=== PATIENT | male | born 1970 | race Caucasian/White ===

== ENCOUNTER 2019-12-04 07:50 | Observation (INO) | payer OTHER ==
--- NOTE | 2019-12-04 08:10 | ERPHSYRPT ---
- History of Present Illness Time Seen by Provider: 12/04/19 08:00 Source: patient Exam Limitations: no limitations Patient Subjective Stated Complaint: pt here for increase in cough, he states he feels like there is liquid in hes lungs for the last 2 days, sputum yellow in coulor, denies fever, he states pain to chest from coughin so much Triage Nursing Assessment: pt alert,resp easy at rest, has diminshed bs,dry cough, no edema noted, abd soft. moves all ext well Physician History: Patient is a 49-year-old male presents to our ED with complaints of cough and shortness of breath that has been progressive over the last 2 days. Patient states shortness of breath worse when he lays flat. Patient feels "fluid" in his chest. Patient has left chest soreness. Patient attributes this to coughing. Patient is a smoker. He has not seen a primary care doctor in over 5 years. Patient works as a construction quality control manager. No fever. No nausea or vomiting. No diarrhea. No rash. Symptoms are progressive. Symptoms are moderate in intensity. Lying flat worsens shortness of breath. Sitting up improves his symptomology. Patient is hypertensive on the manager cardiac cath. Patient denies hx of medical problems. He voices no other complaints at this time. Timing/Duration: day(s) (2) Activities at Onset: none Severity of Dyspnea-Max: moderate Severity of Dyspnea-Current: mild Possible Cause: no prior episodes Modifying Factors: Improves With: other (Lying flat worsens symptomology.) Associated Symptoms: cough, chest pain/discomfort, edema, productive cough, No hemoptysis, No calf pain, No painful breathing Allergies/Adverse Reactions: lorazepam [From Ativan] Adverse Reaction (Verified 12/04/19 08:04) Hx Tetanus, Diphtheria Vaccination/Date Given: Yes Hx Influenza Vaccination/Date Given: No Hx Pneumococcal Vaccination/Date Given: No Immunizations Up to Date: Yes Travel Risk - International Travel Have you traveled outside of the country in past 3 weeks: No - Coronavirus Screening Are you exhibiting any of the following symptoms?: No Close contact with a COVID-19 positive Pt in past 14-21 Days: No - Review of Systems Constitutional: No Symptoms, No Fever, No Chills Eyes: No Symptoms Ears, Nose, & Throat: No Symptoms Respiratory: Cough, Dyspnea, Dyspnea on Exertion ([place]) Cardiac: No Chest Pain, No Edema, No Syncope Abdominal/Gastrointestinal: No Symptoms, No Abdominal Pain, No Nausea, No Vomiting, No Diarrhea Genitourinary Symptoms: No Dysuria Musculoskeletal: No Symptoms, No Back Pain, No Neck Pain Skin: No Symptoms, No Rash Neurological: No Symptoms, No Dizziness, No Focal Weakness, No Sensory Changes Psychological: No Symptoms Endocrine: No Symptoms Hematologic/Lymphatic: No Symptoms Immunological/Allergic: Pollen Allergy All Other Systems: Reviewed and Negative - Past Medical History Pertinent Past Medical History: No Neurological History: No Pertinent History ENT History: No Pertinent History Cardiac History: No Pertinent History Respiratory History: No Pertinent History Endocrine Medical History: No Pertinent History Musculoskeletal History: No Pertinent History GI Medical History: No Pertinent History History: No Pertinent History Psycho-Social History: Depression, Other Male Reproductive Disorders: No Pertinent History Other Medical History: CHRONIC BACK PAIN - Past Surgical History Past Surgical History: No - Social History Smoking Status: Current every day smoker Exposure to second hand smoke: Yes Drug Use: none Patient Lives Alone: No - Nursing Vital Signs Nursing Vital Signs: Initial Vital Signs Temperature 98.1 F 12/04/19 07:53 Pulse Rate 94 H 12/04/19 07:53 Respiratory Rate 22 12/04/19 07:53 Blood Pressure 225/128 12/04/19 07:53 O2 Sat by Pulse Oximetry 95 12/04/19 07:53 Pain Scale Pain Intensity 2 - Physical Exam General Appearance: no apparent distress, alert Eye Exam: PERRL/EOMI Ears, Nose, Throat Exam: hearing grossly normal Neck Exam: normal inspection, supple, full range of motion, No lymphadenopathy ( R), No lymphadenopathy (L), No subcutaneous emphysema Respiratory Exam: other (slightly course BS bilaterally.) Cardiovascular/Chest Exam: normal heart sounds, regular rate/rhythm Abdominal/Gastrointestinal Exam: soft, No tenderness, No distention, No mass Rectal Exam: deferred Extremity Exam: non-tender, normal range of motion, normal inspection, no calf tenderness, no pedal edema Peripheral Pulses Exam: dorsalis-pedis (R): 2+, dorsalis-pedis (L): 2+ Neurologic Exam: alert, oriented x 3, cooperative, venue attendant II-XII nml as tested, sensation nml, No motor deficits Skin Exam: normal color, warm, No dry Lymphatic Exam: No adenopathy SpO2 Interpretation: normal SpO2: 95 O2 Delivery: Room Air - Course Nursing assessment & vital signs reviewed: Yes EKG Interpreted by Me: RATE (80), Sinus Rhythm, Left Epping Deviation, NORMAL INTERVALS - Radiology Exams Chest X-ray Interpretation: Teleradiologist Report (1 acute hyperinflated chest with chronic features.) Ordered Tests: Active Orders 24 hr Category Date Time Status Climbing Guide STAT Care 12/04/19 08:07 Active EKG-ER Only STAT Care 12/04/19 08:06 Active IV Insertion STAT Care 12/04/19 08:06 Active Pulse Oximetry (ED) STAT Care 12/04/19 08:06 Active CHEST 1 VIEW (PORTABLE) Stat Exams 12/04/19 08:07 Completed CBC W DIFF Stat Lab 12/04/19 08:10 Completed CMP Stat Lab 12/04/19 08:10 Completed D-DIMER QUANTITATIVE Stat Lab 12/04/19 08:10 Completed NT PRO BNP Stat Lab 12/04/19 08:10 Completed TROPONIN Q3H Lab 12/04/19 08:10 Completed TROPONIN Q3H Lab 12/04/19 11:15 Ordered TROPONIN Q3H Lab 12/04/19 14:15 Ordered TROPONIN Q3H Lab 12/04/19 17:15 Ordered TROPONIN Q3H Lab 12/04/19 20:15 Ordered Transfer Order Routine Transfer 12/04/19 Ordered Medication Summary Generic Name Dose Route Start Last Admin Trade Name Freq PRN Reason Stop Dose Admin Nitroglycerin/Dextrose 250 mls @ 1.5 mls/hr 12/04/19 09:09 Ntg 0.2mg/Ml In D5w Glass IV 01/03/20 09:08 .Q24H PRN CHEST PAIN Protocol 5 MCG/MIN Lab/Rad Data: Laboratory Result Diagrams 12/04/19 08:10 12/04/19 08:10 Laboratory Results 12/04/19 12/04/19 12/04/19 Range/Units 08:10 08:10 08:10 WBC (4.0-10.5) K/mm3 RBC (4.1-5.6) M/mm3 Hgb (12.5-18.0) gm/dl Hct (42-50) % MCV (78-100) fl MCH (26-32) pg MCHC (32-36) g/dl RDW (11.5-14.0) % Plt Count (150-450) K/mm3 MPV (7.5-11.0) fl Gran % (36.0-66.0) % Eos # (Auto) (0-0.5) Absolute Lymphs (auto) (1.0-4.6) Absolute Monos (auto) (0.0-1.3) Lymphocytes % (24.0-44.0) % Monocytes % (0.0-12.0) % Eosinophils % (0.00-5.0) % Basophils % (0.0-0.4) % Absolute Granulocytes (1.4-6.9) Basophils # (0-0.4) D-Dimer < 215 L (215-500) ng/mL Sodium 140 (137-145) mmol/L Potassium 4.7 (3.5-5.1) mmol/L Chloride 104 (98-107) mmol/L Carbon Dioxide 29 (22-30) mmol/L Anion Gap 11.8 (5-15) MEQ/L BUN 18 (9-20) mg/dL Creatinine 0.77 (0.66-1.25) mg/dL Estimated GFR > 60.0 ML/MIN Glucose 125 H (74-106) mg/dL Calcium 10.2 (8.4-10.2) mg/dL Total Bilirubin 0.50 (0.2-1.3) mg/dL AST 33 (17-59) U/L ALT 24 (0-50) U/L Alkaline Phosphatase 86 (38-126) U/L Troponin I 0.035 H (0.000-0.034) ng/mL NT-Pro-B Natriuret Pep 71.5 (0-900) pg/mL Serum Total Protein 8.4 H (6.3-8.2) g/dL Albumin 4.8 (3.5-5.0) g/dL 12/04/19 Range/Units 08:10 WBC 6.4 (4.0-10.5) K/mm3 RBC 5.66 H (4.1-5.6) M/mm3 Hgb 17.1 (12.5-18.0) gm/dl Hct 50.5 H (42-50) % MCV 89.2 (78-100) fl MCH 30.2 (26-32) pg MCHC 33.9 (32-36) g/dl RDW 14.0 (11.5-14.0) % Plt Count 268 (150-450) K/mm3 MPV 9.3 (7.5-11.0) fl Gran % 49.3 (36.0-66.0) % Eos # (Auto) 0.38 (0-0.5) Absolute Lymphs (auto) 2.00 (1.0-4.6) Absolute Monos (auto) 0.79 (0.0-1.3) Lymphocytes % 31.4 (24.0-44.0) % Monocytes % 12.4 H (0.0-12.0) % Eosinophils % 6.0 H (0.00-5.0) % Basophils % 0.9 (0.0-0.4) % Absolute Granulocytes 3.13 (1.4-6.9) Basophils # 0.06 (0-0.4) D-Dimer (215-500) ng/mL Sodium (137-145) mmol/L Potassium (3.5-5.1) mmol/L Chloride (98-107) mmol/L Carbon Dioxide (22-30) mmol/L Anion Gap (5-15) MEQ/L BUN (9-20) mg/dL Creatinine (0.66-1.25) mg/dL Estimated GFR ML/MIN Glucose (74-106) mg/dL Calcium (8.4-10.2) mg/dL Total Bilirubin (0.2-1.3) mg/dL AST (17-59) U/L ALT (0-50) U/L Alkaline Phosphatase (38-126) U/L Troponin I (0.000-0.034) ng/mL NT-Pro-B Natriuret Pep (0-900) pg/mL Serum Total Protein (6.3-8.2) g/dL Albumin (3.5-5.0) g/dL - Progress Progress: improved Air Movement: fair Progress Note: 12/04/19 09:40 Patient reassessed. He has no active chest pain at this time. Patient is experiencing hypertensive urgency. Elevated troponin likely due to acute hypertension. Possible acute coronary syndrome. Patient is a smoker and has not seen a primary care doctor some years. We will initiate nitroglycerin drip to address blood pressure and elevated troponin. Case discussed with Hay who accepts admission to observation. We will perform rapid COVID testing due to cough. Plan of care discussed with patient. He agrees to admission to [facility] for further evaluation and treatment. Case discussed with Dr. Rodriguez who accepts admission to observation. Blood Culture(s) Obtained: No Antibiotics given: No Discussed with : Marli Will see patient in: hospital (observation) Counseled pt/family regarding: lab results, diagnosis, need for follow-up, rad results, smoking cessation - Departure Departure Disposition: Observation Clinical Impression: Hypertensive urgency, Elevated troponin, Shortness of breath, Smoker Condition: Stable Critical Care Time: No Referrals: ANDREE JAKCSON [Primary Care Provider] -
[2019-12-04 08:16] LABS: Absolute Neutrophil Ct (ANC) 3.13 (1.4-6.9); BASOPHIL % 0.9 % (0.0-0.4); Basophil (Absolute #) 0.06 (0-0.4); Eosinophil (Absolute #) 0.38 (0-0.5); Hematocrit 50.5 % (42-50); Hemoglobin 17.1 gm/dl (12.5-18.0); Lymphocytes % 31.4 % (24.0-44.0); Mean Cell Volume 89.2 fl (78-100); Mean Corpuscular Hemoglobin 30.2 pg (26-32); Mean Corpuscular Hgb Concent. 33.9 g/dl (32-36); Mean Platelet Volume 9.3 fl (7.5-11.0); Monocyte (Absolute #) 0.79 (0.0-1.3); Monocytes % 12.4 % (0.0-12.0); Neutrophil % 49.3 % (36.0-66.0); Platelet Count 268 K/mm3 (150-450); Red Blood Count 5.66 M/mm3 (4.1-5.6); White Blood Count 6.4 K/mm3 (4.0-10.5)
--- NOTE | 2019-12-04 08:33 | XRAY ---
Indication: Productive cough 2 days. Comparison: None Portable chest hyperinflated and clear with incidental tiny left lung calcified granulomas. Heart is not enlarged with tortuous descending aorta. Bony thorax intact with mild degenerative changes and old bilateral rib fractures. Impression: Nonacute hyperinflated chest with chronic features.
[2019-12-04 08:39] LABS: ALBUMIN 4.8 g/dL (3.5-5.0); ALKALINE PHOSPHATASE 86 U/L (38-126); ANION GAP 11.8 MEQ/L (5-15); BLOOD UREA NITROGEN 18 mg/dL (9-20); CHLORIDE 104 mmol/L (98-107); Calcium 10.2 mg/dL (8.4-10.2); Carbon Dioxide 29 mmol/L (22-30); Creatinine 1 0.77 mg/dL (0.66-1.25); Glucose 125 mg/dL (74-106); NT PRO BNP 71.5 pg/mL (0-900); Potassium 4.7 mmol/L (3.5-5.1); SGOT/AST 33 U/L (17-59); SGPT/ALT 24 U/L (0-50); SODIUM 140 mmol/L (137-145); Total Protein 8.4 g/dL (6.3-8.2)
[2019-12-04] MEDS ORDERED: Ntg 0.2MG/Ml in D5W GLASS*** 250 ML IV PRN (09:09)
[2019-12-04] MEDS ORDERED: Sodium Chloride 0.9% 1000 ML 1,000 ML ONE (11:22)
[2019-12-04] MEDS ORDERED: Toprol-Xl 25MG Tablets PO SCH (14:00)
[2019-12-04] MEDS ORDERED: Toprol-Xl 25MG Tablets ONE (14:13)
[2019-12-04] MEDS ORDERED: TYLENOL EXTRA STRENGTH 500 MG ONE (14:17)
[2019-12-04] MEDS: TYLENOL EXTRA STRENGTH 500 MG PO PRN ×2 (14:20→21:50)
[2019-12-04] MEDS ORDERED: MAALOX ES 30 ML UNIT DOSE PO PRN (14:30)
[2019-12-04] MEDS ORDERED: MILK OF MAGNESIA 30 ML PO PRN (14:30)
[2019-12-04] MEDS ORDERED: Zofran 4 MG/2 ML VIAL IV PRN (14:30)
[2019-12-04] MEDS ORDERED: Senokot-S Tablet PO PRN (14:30)
[2019-12-04] MEDS ORDERED: TYLENOL 325 MG PO PRN ×2 (14:30)
[2019-12-04] MEDS: Sodium Chloride 0.9% 1000 ML 1,000 ML IV SCH (14:52)
[2019-12-04] MEDS ORDERED: Toprol-Xl 25MG Tablets PO ONE (15:54)
[2019-12-04] MEDS ORDERED: NORVASC 5 MG PO ONE (16:20)
[2019-12-04] MEDS ORDERED: Oxycontin 10 MG ER PO ONE (17:20)
[2019-12-04] MEDS: Catapres 0.1 MG PO SCH ×2 (17:23→21:48)
[2019-12-04] MEDS: Nicoderm CQ 21 MG TOP SCH (18:13)
[2019-12-04] MEDS ORDERED: Oxycontin 10 MG ER PO PRN (20:28)
--- NOTE | 2019-12-04 20:37 | PCM.HP ---
History of Present Illness - Chief Complaint Chief Complaint: hypertensive urgency History of Present Illness: is a 49 year old male pt with no local MD (last saw PCP, Dr. Link, 5 years ago) and hx HTN who was admitted through ER with ACS vs Hypertensive urgency. He had been feeling like his lungs were "filled with fluid" x 2 days and increased cough, worse with lying down. In ER his inital BP was 225/128. EKG without acute change in ER. His first troponin was mildly elevated, but the next 3 have been normal. Pt was admitted on nitro drip, currently at 40mcg/min. He is complaining of headache ever since (better with oxycodone). His bp has been decreasing intermittently; currently around 180 systolic. He is feeling better than on admission; no longer feels like lungs are full of fluid. - Review of Systems Constitutional: Chills Ears, Nose, & Throat: Other (chemical taste on inspiration yesterday) Respiratory: Cough, Orthopnea, Short Of Breath Genitourinary Symptoms: Hematuria (2 wks ago, thought he passed a kidney stone) Neurological: Dizziness (at hospital) Psychological: No Suicidal Ideations All Other Systems: Reviewed and Negative Medications & Allergies Home Medications: Home Medication List No Reportable Medications [No Reported Medications] 12/04/19 [History Confirmed 12/04/19] Allergies/Adverse Reactions: Allergies Allergy/AdvReac Type Severity Reaction Status Date / Time lorazepam [From Ativan] AdvReac Verified 12/04/19 08:04 - Past Medical History Past Medical History: Yes Neurological History: No Pertinent History ENT History: No Pertinent History Cardiac History: Hypertension Respiratory History: No Pertinent History Endocrine Medical History: No Pertinent History Musculoskelatal History: No Pertinent History GI Medical History: No Pertinent History History: No Pertinent History Pyscho-Social History: No Pertinent History Male Reproductive Disorders: No Pertinent History Comment: CHRONIC BACK PAIN - Past Surgical History Past Surgical History: No - Social History Smoking Status: Current every day smoker Exposure to second hand smoke: Yes Alcohol: Occasionally Drug Use: none - Physical Exam Vital Signs: Vital Signs - 24 hr Temp Pulse Resp BP BP Pulse Ox 12/04/19 20:00 68 18 159/103 97 12/04/19 19:56 94 L 12/04/19 19:00 98.1 F 64 18 227/127 227/127 97 06/16/20 18:00 71 164/102 164/102 97 12/04/19 17:00 65 18 165/98 165/98 96 12/04/19 16:00 97.9 F 71 21 183/89 182/98 95 12/04/19 15:06 73 18 149/85 12/04/19 15:00 81 18 149/85 145/91 96 12/04/19 14:42 98.8 F 81 18 187/124 96 12/04/19 14:27 98.1 F 80 25 H 187/124 98 12/04/19 14:00 72 18 158/101 94 L 12/04/19 13:15 182/97 12/04/19 12:40 161/101 12/04/19 11:45 81 18 187/124 96 12/04/19 11:25 77 18 149/98 94 L 12/04/19 11:00 98.1 F 80 25 H 187/124 98 12/04/19 10:15 59 L 18 177/116 96 12/04/19 10:00 98.1 F 80 25 H 187/124 98 12/04/19 09:42 95 12/04/19 09:14 71 18 186/107 94 L 12/04/19 08:09 96 12/04/19 07:53 98.1 F 94 H 20 225/128 95 General Appearance: no apparent distress, alert Neurologic Exam: oriented x 3, cooperative Eye Exam: eyes nml inspection Ears, Nose, Throat Exam: moist mucous membranes Neck Exam: normal inspection, non-tender, No lymphadenopathy Respiratory Exam: normal breath sounds, lungs clear, No crackles/rales, No rhonchi, No wheezing Cardiovascular Exam: regular rate/rhythm, normal heart sounds, No murmur Gastrointestinal/Abdomen Exam: soft, normal bowel sounds, No tenderness, No distention, No mass, No guarding, No rebound Back Exam: normal inspection, No rash Extremity Exam: normal inspection, No swelling, No tenderness Skin Exam: normal color, warm, dry, No rash Results - Labs Lab/Micro Results: Lab Results-Last 24 Hours 12/04/19 12/04/19 12/04/19 Range/Units 08:10 08:10 08:10 WBC 6.4 (4.0-10.5) K/mm3 RBC 5.66 H (4.1-5.6) M/mm3 Hgb 17.1 (12.5-18.0) gm/dl Hct 50.5 H (42-50) % MCV 89.2 (78-100) fl MCH 30.2 (26-32) pg MCHC 33.9 (32-36) g/dl RDW 14.0 (11.5-14.0) % Plt Count 268 (150-450) K/mm3 MPV 9.3 (7.5-11.0) fl Gran % 49.3 (36.0-66.0) % Eos # (Auto) 0.38 (0-0.5) Absolute Lymphs (auto) 2.00 (1.0-4.6) Absolute Monos (auto) 0.79 (0.0-1.3) Lymphocytes % 31.4 (24.0-44.0) % Monocytes % 12.4 H (0.0-12.0) % Eosinophils % 6.0 H (0.00-5.0) % Basophils % 0.9 (0.0-0.4) % Absolute Granulocytes 3.13 (1.4-6.9) Basophils # 0.06 (0-0.4) D-Dimer < 215 L (215-500) ng/mL Sodium 140 (137-145) mmol/L Potassium 4.7 (3.5-5.1) mmol/L Chloride 104 (98-107) mmol/L Carbon Dioxide 29 (22-30) mmol/L Anion Gap 11.8 (5-15) MEQ/L BUN 18 (9-20) mg/dL Creatinine 0.77 (0.66-1.25) mg/dL Estimated GFR > 60.0 ML/MIN Glucose 125 H (74-106) mg/dL Calcium 10.2 (8.4-10.2) mg/dL Total Bilirubin 0.50 (0.2-1.3) mg/dL AST 33 (17-59) U/L ALT 24 (0-50) U/L Alkaline Phosphatase 86 (38-126) U/L Troponin I (0.000-0.034) ng/mL NT-Pro-B Natriuret Pep 71.5 (0-900) pg/mL Serum Total Protein 8.4 H (6.3-8.2) g/dL Albumin 4.8 (3.5-5.0) g/dL SARS-CoV-2 (PCR) (NEGATIVE) 12/04/19 12/04/19 12/04/19 Range/Units 08:10 09:35 11:25 WBC (4.0-10.5) K/mm3 RBC (4.1-5.6) M/mm3 Hgb (12.5-18.0) gm/dl Hct (42-50) % MCV (78-100) fl MCH (26-32) pg MCHC (32-36) g/dl RDW (11.5-14.0) % Plt Count (150-450) K/mm3 MPV (7.5-11.0) fl Gran % (36.0-66.0) % Eos # (Auto) (0-0.5) Absolute Lymphs (auto) (1.0-4.6) Absolute Monos (auto) (0.0-1.3) Lymphocytes % (24.0-44.0) % Monocytes % (0.0-12.0) % Eosinophils % (0.00-5.0) % Basophils % (0.0-0.4) % Absolute Granulocytes (1.4-6.9) Basophils # (0-0.4) D-Dimer (215-500) ng/mL Sodium (137-145) mmol/L Potassium (3.5-5.1) mmol/L Chloride (98-107) mmol/L Carbon Dioxide (22-30) mmol/L Anion Gap (5-15) MEQ/L BUN (9-20) mg/dL Creatinine (0.66-1.25) mg/dL Estimated GFR ML/MIN Glucose (74-106) mg/dL Calcium (8.4-10.2) mg/dL Total Bilirubin (0.2-1.3) mg/dL AST (17-59) U/L ALT (0-50) U/L Alkaline Phosphatase (38-126) U/L Troponin I 0.035 H 0.026 (0.000-0.034) ng/mL NT-Pro-B Natriuret Pep (0-900) pg/mL Serum Total Protein (6.3-8.2) g/dL Albumin (3.5-5.0) g/dL SARS-CoV-2 (PCR) NEGATIVE (NEGATIVE) 12/04/19 12/04/19 Range/Units 17:25 Unknown WBC (4.0-10.5) K/mm3 RBC (4.1-5.6) M/mm3 Hgb (12.5-18.0) gm/dl Hct (42-50) % MCV (78-100) fl MCH (26-32) pg MCHC (32-36) g/dl RDW (11.5-14.0) % Plt Count (150-450) K/mm3 MPV (7.5-11.0) fl Gran % (36.0-66.0) % Eos # (Auto) (0-0.5) Absolute Lymphs (auto) (1.0-4.6) Absolute Monos (auto) (0.0-1.3) Lymphocytes % (24.0-44.0) % Monocytes % (0.0-12.0) % Eosinophils % (0.00-5.0) % Basophils % (0.0-0.4) % Absolute Granulocytes (1.4-6.9) Basophils # (0-0.4) D-Dimer (215-500) ng/mL Sodium (137-145) mmol/L Potassium (3.5-5.1) mmol/L Chloride (98-107) mmol/L Carbon Dioxide (22-30) mmol/L Anion Gap (5-15) MEQ/L BUN (9-20) mg/dL Creatinine (0.66-1.25) mg/dL Estimated GFR ML/MIN Glucose (74-106) mg/dL Calcium (8.4-10.2) mg/dL Total Bilirubin (0.2-1.3) mg/dL AST (17-59) U/L ALT (0-50) U/L Alkaline Phosphatase (38-126) U/L Troponin I 0.023 0.025 (0.000-0.034) ng/mL NT-Pro-B Natriuret Pep (0-900) pg/mL Serum Total Protein (6.3-8.2) g/dL Albumin (3.5-5.0) g/dL SARS-CoV-2 (PCR) (NEGATIVE) - Radiology Impressions Radiology Exams & Impressions: Radiology Procedures Category Date Time Status CHEST 1 VIEW (PORTABLE) Stat Exams 12/04/19 08:07 Completed - Other Procedures and Tests Respiratory Therapy 12/05/19 05:00 EKG DAILY Assessment/Plan (1) Hypertensive urgency Current Visit: Yes Status: Acute Assessment & Plan: Slowly resolving; have also given pt toprol 50mg po, amlodipine 10mg po, and catapres 0.1mg po. Start weaning nitro drip as tolerated. Code(s): I16.0 - HYPERTENSIVE URGENCY (2) Elevated troponin Current Visit: Yes Status: Resolved Code(s): R79.89 - OTHER SPECIFIED ABNORMAL FINDINGS OF BLOOD CHEMISTRY (3) Shortness of breath Current Visit: Yes Status: Resolved Code(s): R06.02 - SHORTNESS OF BREATH (4) Smoker Current Visit: Yes Status: Chronic Assessment & Plan: has nicoderm patch in place. Code(s): F17.200 - NICOTINE DEPENDENCE, UNSPECIFIED, UNCOMPLICATED
[2019-12-05 05:56] LABS: Hematocrit 46.5 % (42-50); Hemoglobin 15.4 gm/dl (12.5-18.0); Mean Cell Volume 91.2 fl (78-100); Mean Corpuscular Hemoglobin 30.2 pg (26-32); Mean Corpuscular Hgb Concent. 33.1 g/dl (32-36); Platelet Count 242 K/mm3 (150-450); Red Cell Distribution Width 14.2 % (11.5-14.0); White Blood Count 7.4 K/mm3 (4.0-10.5)
[2019-12-05 06:15] LABS: ANION GAP 7.7 MEQ/L (5-15); BLOOD UREA NITROGEN 19 mg/dL (9-20); CHLORIDE 104 mmol/L (98-107); Calcium 9.3 mg/dL (8.4-10.2); Carbon Dioxide 29 mmol/L (22-30); Creatinine 1 0.84 mg/dL (0.66-1.25); Glucose 105 mg/dL (74-106); Potassium 4.4 mmol/L (3.5-5.1); SODIUM 136 mmol/L (137-145)
[2019-12-05 06:26] LABS: TROPONIN 0.033 ng/mL (0.000-0.034)
[2019-12-05 06:27] LABS: Amphetamine,Urine NEGATIVE (NEGATIVE); Barbiturate,Urine NEGATIVE (NEGATIVE); Benzodiazepine,Urine NEGATIVE (NEGATIVE); Cocaine,Urine NEGATIVE (NEGATIVE); Methadone,Urine NEGATIVE (NEGATIVE); Opiate,Urine NEGATIVE (NEGATIVE); PCP,Urine NEGATIVE (NEGATIVE); THC,Urine NEGATIVE (NEGATIVE)
[2019-12-05] MEDS: TYLENOL EXTRA STRENGTH 500 MG PO PRN ×2 (07:40→13:40)
[2019-12-05] MEDS: Toprol Xl 50 MG PO SCH (08:58)
[2019-12-05] MEDS: Catapres 0.1 MG PO SCH ×2 (08:59→20:21)
[2019-12-05] MEDS: NORVASC 5 MG PO SCH (08:59)
[2019-12-05] MEDS: Protonix 40MG Tablet PO SCH (09:00)
[2019-12-05] MEDS: Nicoderm CQ 21 MG TOP SCH (14:02)
--- NOTE | 2019-12-05 14:22 | PCM.NOTE ---
Date and Time: 12/05/199 Subjective Assessment: Pt's nitro drip was turned off last night for a time, then resumed this morning (also, headache resumed). I saw pt this morning, but RN let me know that the drip is off this afternoon with BP currently in the 120s systolic (pt had all his po BP meds this morning). He has no specific complaints today. - Review of Systems Constitutional: No Fever Abdominal/Gastrointestinal: No Vomiting Objective Exam General Appearance: no apparent distress, alert Neurologic Exam: oriented x 3, cooperative Skin Exam: normal color, warm, dry, No rash Respiratory Exam: normal breath sounds, wheezing (faint wheeze scattered), No crackles/rales, No rhonchi Cardiovascular Exam: regular rate/rhythm, normal heart sounds, No murmur Gastrointestinal/Abdomen Exam: soft, normal bowel sounds, No tenderness, No distention, No mass, No guarding, No rebound Extremity Exam: normal inspection, No pedal edema, No swelling Back Exam: normal inspection, No rash OBJECTIVE DATA Vital Signs: Vital Signs - 24 hr Temp Pulse Resp BP BP Pulse Ox 12/05/19 14:00 64 135/82 12/05/19 13:00 54 L 126/87 12/05/19 12:00 98.4 F 62 15 140/86 97 12/05/19 11:30 60 132/83 132/83 12/05/19 11:00 57 L 138/88 138/88 12/05/19 10:30 53 L 14 115/73 115/73 12/05/19 10:00 59 L 16 120/81 120/81 97 12/05/19 09:30 64 16 152/91 152/91 12/05/19 09:00 62 18 123/73 123/73 12/05/19 08:06 63 16 155/92 93 L 12/05/19 08:00 60 16 155/92 155/92 95 12/05/19 07:42 65 16 141/91 95 12/05/19 07:30 59 L 142/89 12/05/19 06:51 146/92 12/05/19 06:48 66 16 134/95 12/05/19 06:40 59 L 16 134/95 12/05/19 06:37 134/95 12/05/19 06:07 148/98 12/05/19 05:47 58 L 14 145/93 12/05/19 05:38 63 16 145/93 96 12/05/19 05:07 138/111 12/05/19 04:59 64 14 175/107 12/05/19 04:48 97.6 F 166/105 12/05/19 04:35 59 L 16 166/105 12/05/19 03:45 55 L 14 149/99 12/05/19 03:34 60 16 135/86 94 L 12/05/19 03:00 57 L 16 140/86 12/05/19 02:33 57 L 16 147/89 94 L 12/05/19 02:00 60 16 134/74 12/05/19 01:40 55 L 18 136/70 97 12/05/19 01:00 56 L 16 123/83 12/05/19 00:42 57 L 18 158/89 12/05/19 00:36 59 L 16 131/82 99 12/04/19 23:51 61 16 145/79 12/04/19 23:42 59 L 12/04/19 23:40 59 L 18 142/76 91 L 12/04/19 23:16 60 18 138/62 12/04/19 23:00 66 20 131/65 92 L 12/04/19 22:58 66 20 131/65 12/04/19 21:54 79 20 162/100 12/04/19 21:53 79 20 162/100 12/04/19 20:59 70 18 193/120 12/04/19 20:57 63 20 193/120 97 12/04/19 20:00 70 20 198/117 159/103 97 12/04/19 19:56 94 L 12/04/19 19:00 98.1 F 64 18 227/127 227/127 97 12/04/19 18:00 71 164/102 164/102 97 12/04/19 17:00 65 18 165/98 165/98 96 12/04/19 16:00 97.9 F 71 21 183/89 182/98 95 12/04/19 15:06 73 18 149/85 12/04/19 15:00 81 18 149/85 145/91 96 12/04/19 14:42 98.8 F 81 18 187/124 96 06/16/20 14:27 98.1 F 80 25 H 187/124 98 Pain Assessment - Last Documented Pain Intensity 0 Pain Scale Used 0-10 Pain Scale Intake and Output: Intake & Output 12/03/19 12/04/19 12/05/19 12/06/19 11:59 11:59 11:59 11:59 Intake Total 240 Balance 240 Weight 96.615 kg 94.7 kg Lab Results: Lab Results-Last 24 Hours 12/04/19 12/04/19 12/04/19 Range/Units 09:35 11:25 17:25 WBC (4.0-10.5) K/mm3 RBC (4.1-5.6) M/mm3 Hgb (12.5-18.0) gm/dl Hct (42-50) % MCV (78-100) fl MCH (26-32) pg MCHC (32-36) g/dl RDW (11.5-14.0) % Plt Count (150-450) K/mm3 MPV (7.5-11.0) fl Sodium (137-145) mmol/L Potassium (3.5-5.1) mmol/L Chloride (98-107) mmol/L Carbon Dioxide (22-30) mmol/L Anion Gap (5-15) MEQ/L BUN (9-20) mg/dL Creatinine (0.66-1.25) mg/dL Estimated GFR ML/MIN Glucose (74-106) mg/dL Calcium (8.4-10.2) mg/dL Troponin I 0.026 0.023 (0.000-0.034) ng/mL Triglycerides (30-150) mg/dL Cholesterol (50-200) mg/dL LDL Cholesterol (30-100) mg/dL HDL Cholesterol (40-60) mg/dL Heart Disease Risk Ratio Urine Opiates Level (NEGATIVE) Ur Methadone (NEGATIVE) Urine Barbiturates (NEGATIVE) Ur Phencyclidine (PCP) (NEGATIVE) Urine Amphetamine (NEGATIVE) U Benzodiazepine Level (NEGATIVE) Urine Cocaine (NEGATIVE) Urine Marijuana (THC) (NEGATIVE) SARS-CoV-2 (PCR) NEGATIVE (NEGATIVE) 12/04/19 12/04/19 12/05/19 Range/Units 20:32 Unknown 04:00 WBC 7.4 (4.0-10.5) K/mm3 RBC 5.10 (4.1-5.6) M/mm3 Hgb 15.4 (12.5-18.0) gm/dl Hct 46.5 (42-50) % MCV 91.2 (78-100) fl MCH 30.2 (26-32) pg MCHC 33.1 (32-36) g/dl RDW 14.2 H (11.5-14.0) % Plt Count 242 (150-450) K/mm3 MPV 10.0 (7.5-11.0) fl Sodium (137-145) mmol/L Potassium (3.5-5.1) mmol/L Chloride (98-107) mmol/L Carbon Dioxide (22-30) mmol/L Anion Gap (5-15) MEQ/L BUN (9-20) mg/dL Creatinine (0.66-1.25) mg/dL Estimated GFR ML/MIN Glucose (74-106) mg/dL Calcium (8.4-10.2) mg/dL Troponin I 0.026 0.025 (0.000-0.034) ng/mL Triglycerides (30-150) mg/dL Cholesterol (50-200) mg/dL LDL Cholesterol (30-100) mg/dL HDL Cholesterol (40-60) mg/dL Heart Disease Risk Ratio Urine Opiates Level (NEGATIVE) Ur Methadone (NEGATIVE) Urine Barbiturates (NEGATIVE) Ur Phencyclidine (PCP) (NEGATIVE) Urine Amphetamine (NEGATIVE) U Benzodiazepine Level (NEGATIVE) Urine Cocaine (NEGATIVE) Urine Marijuana (THC) (NEGATIVE) SARS-CoV-2 (PCR) (NEGATIVE) 12/05/19 12/05/19 12/05/19 Range/Units 04:24 04:24 05:30 WBC (4.0-10.5) K/mm3 RBC (4.1-5.6) M/mm3 Hgb (12.5-18.0) gm/dl Hct (42-50) % MCV (78-100) fl MCH (26-32) pg MCHC (32-36) g/dl RDW (11.5-14.0) % Plt Count (150-450) K/mm3 MPV (7.5-11.0) fl Sodium 136 L (137-145) mmol/L Potassium 4.4 (3.5-5.1) mmol/L Chloride 104 (98-107) mmol/L Carbon Dioxide 29 (22-30) mmol/L Anion Gap 7.7 (5-15) MEQ/L BUN 19 (9-20) mg/dL Creatinine 0.84 (0.66-1.25) mg/dL Estimated GFR > 60.0 ML/MIN Glucose 105 (74-106) mg/dL Calcium 9.3 (8.4-10.2) mg/dL Troponin I 0.033 (0.000-0.034) ng/mL Triglycerides 229 H (30-150) mg/dL Cholesterol 225 H (50-200) mg/dL LDL Cholesterol 134 H (30-100) mg/dL HDL Cholesterol 76 H (40-60) mg/dL Heart Disease Risk Ratio 3.0 Urine Opiates Level NEGATIVE (NEGATIVE) Ur Methadone NEGATIVE (NEGATIVE) Urine Barbiturates NEGATIVE (NEGATIVE) Ur Phencyclidine (PCP) NEGATIVE (NEGATIVE) Urine Amphetamine NEGATIVE (NEGATIVE) U Benzodiazepine Level NEGATIVE (NEGATIVE) Urine Cocaine NEGATIVE (NEGATIVE) Urine Marijuana (THC) NEGATIVE (NEGATIVE) SARS-CoV-2 (PCR) (NEGATIVE) Radiology Exams: Radiology Procedures Category Date Time Status CHEST 1 VIEW (PORTABLE) Stat Exams 12/04/19 08:07 Completed Assessment/Plan (1) Hypertensive urgency Current Visit: Yes Status: Resolved Assessment & Plan: Will observe pt overnight in ICU; if stable on po meds, will transfer to med surg floor. Hold clonidine for BP < 130 systolic. Code(s): I16.0 - HYPERTENSIVE URGENCY (2) Shortness of breath Current Visit: Yes Status: Resolved Code(s): R06.02 - SHORTNESS OF BREATH (3) Smoker Current Visit: Yes Status: Chronic Code(s): F17.200 - NICOTINE DEPENDENCE, UNSPECIFIED, UNCOMPLICATED
[2019-12-05] MEDS: Sodium Chloride 0.9% 1000 ML 1,000 ML IV SCH (20:27)
[2019-12-06] MEDS: TYLENOL EXTRA STRENGTH 500 MG PO PRN ×2 (06:55→11:47)
[2019-12-06] MEDS: NORVASC 5 MG PO SCH (09:05)
[2019-12-06] MEDS: Protonix 40MG Tablet PO SCH (09:05)
[2019-12-06] MEDS: Toprol Xl 50 MG PO SCH (09:05)
[2019-12-06] MEDS: Catapres 0.1 MG PO SCH (09:05)
[2019-12-06 11:57] VITALS: BP 144/85; PULSE 60; O2SAT 100
--- NOTE | 2019-12-06 13:04 | PCM.DS ---
Discharge Summary Date of Admission: 12/04/19 11:48 Admitting Physician: YULI WALLER Primary Care Provider: ANDREE JACKSON Allergies Allergies lorazepam [From Ativan] Adverse Reaction (Verified 12/04/19 08:04) Hospital Summary - Hospital Course Hospital Course: Pt is a 49 yo male with no local MD, hx HTN, who came to ER c/o feeling like his lungs were filling with fluid. He was found to have a bp >220 systolic. Was admitted to ICU on nitro drip. Troponins were neg. CXR nonacute. Pt was started eventually on toprol XL 50mg/d, clonidine 0.1mg po BID, and norvasc 10mg/d. Currently off the nitro drip (since yesterday) with bp from 120s to 150s systolic. He is feeling tired, but the nitro headache is gone. Tolerating po. Will be discharged to home on current po meds and f/u with MD in 1 week (wants to f/u with Dr. Farfan). - Vitals & Intake/Output Vital Signs: Vital Signs Temperature 98.1 F 12/06/19 11:56 Pulse Rate 60 12/06/19 12:00 Respiratory Rate 18 12/06/19 11:56 Blood Pressure 144/85 12/06/19 11:56 O2 Sat by Pulse Oximetry 100 12/06/19 12:00 Intake & Output: Intake & Output 12/04/19 12/05/19 12/06/19 12/07/19 11:59 11:59 11:59 11:59 Intake Total 240 1561 Balance 240 1561 Weight 96.615 kg 94.7 kg 94.2 kg - Lab Result Diagrams: 12/05/19 04:00 12/05/19 04:24 - Procedures and Test Procedures and Tests throughout Hospitalization: Therapy Orders & Screens 12/04/19 14:30 EKG DAILY Comment: 12/04/19 14:48 Smoking Cessation Education ONCE Comment: Diagnosis: hypertensive urgency Smoking Status: Current every day smoker Have you smoked in the past 12 months: Yes Approximately how many cigarettes per day: 1 pack Do you dip or chew tobacco: No 12/05/19 05:00 EKG DAILY Comment: Diagnosis: hypertensive urgency Discharge Exam General Appearance: no apparent distress, alert Neurologic Exam: oriented x 3, cooperative Eye Exam: eyes nml inspection Ears, Nose, Throat Exam: moist mucous membranes Neck Exam: normal inspection Respiratory Exam: normal breath sounds, lungs clear, wheezing (faint, scattered), No crackles/rales, No rhonchi Cardiovascular Exam: regular rate/rhythm, normal heart sounds, No murmur Gastrointestinal/Abdomen Exam: soft, normal bowel sounds, No tenderness, No distention, No mass, No guarding, No rebound Back Exam: normal inspection, No rash Extremity Exam: No swelling, No tenderness Skin Exam: normal color, warm, dry, No rash Final Diagnosis/Problem List - Final Discharge Diagnosis/Problem (1) Hypertension Current Visit: Yes Status: Acute Assessment & Plan: Home on clonidine 0.1mg po BID, norvasc 10mg po daily, and Toprol XL 50mg daily. Code(s): I10 - ESSENTIAL (PRIMARY) HYPERTENSION (2) Hypertensive urgency Current Visit: Yes Status: Resolved Code(s): I16.0 - HYPERTENSIVE URGENCY (3) Shortness of breath Current Visit: Yes Status: Resolved Code(s): R06.02 - SHORTNESS OF BREATH (4) Smoker Current Visit: Yes Status: Chronic Code(s): F17.200 - NICOTINE DEPENDENCE, UNSPECIFIED, UNCOMPLICATED - Discharge Disposition: Home, Self-Care Condition: Good Prescriptions: New Albuterol 17 gm IH Q4H PRN #1 aerosol PRN Reason: wheezing Clonidine HCl 0.1 mg [Catapres 0.1 MG] 0.1 mg PO BID #60 tablet Amlodipine Besylate 5 mg [Norvasc 5 mg] 10 mg PO QAM #30 tablet Metoprolol Succinate 50 mg [Toprol Xl 50 MG] 50 mg PO DAILY #30 tablet.sa Instructions: High Blood Pressure (DC), High Blood Pressure Emergencies, Medicines for High Blood Pressure, Quitting Smoking Follow up with: YULI WALLER [ACTIVE STAFF] - 12/14/19 10:15 am
== END 2019-12-06 13:23 | disposition home or self-care (01) ==
LOC: ED 07:50 → ICU 11:48
PROVIDERS: ADMIT Family Medicine; ATTEND Family Medicine
DX: I16.0 Hypertensive urgency (principal); I10 Essential (primary) hypertension; R06.02 Shortness of breath; R79.89 Other specified abnormal findings of blood chemistry; R42 Dizziness and giddiness; R51 Headache; Z79.899 Other long term (current) drug therapy; F17.200 Nicotine dependence, unspecified, uncomplicated
CPT/HCPCS: 36000; 36415; 71045; 80048; 80053; 80061; 80307; 83721; 83880; 84484; 85025; 85027; 85379; 93005; 93041; 93268; 94760; 99285; U0003; A9270-GY; G0378

== ENCOUNTER 2022-12-21 22:52 | Emergency (ER) | payer OTHER ==
[2022-12-21 23:26] LABS: Absolute Neutrophil Ct (ANC) 3.38 x10^3/uL (1.4-6.9); BASOPHIL % 1.3 % (0.0-0.4); Basophil (Absolute #) 0.09 x10^3/uL (0-0.4); Eosinophil % 1.2 % (0.00-5.0); Eosinophil (Absolute #) 0.08 x10^3/uL (0-0.5); Hematocrit 45.6 % (42-50); IMMATURE GRAN # 0.02 x10^3u/L (0.00-0.03); IMMATURE GRAN % 0.3 % (0.00-0.4); Lymphocytes % 37.8 % (24.0-44.0); Mean Cell Volume 90.8 fL (78-100); Mean Corpuscular Hemoglobin 29.9 pg (26-32); Mean Corpuscular Hgb Concent. 32.9 g/dL (32-36); Mean Platelet Volume 8.5 fL (7.5-11.0); Monocytes % 10.2 % (0.0-12.0); Neutrophil % 49.2 % (36.0-66.0); Platelet Count 273 x10^3/uL (150-450); Red Blood Count 5.02 x10^6/uL (4.1-5.6); Red Cell Distribution Width 14.3 % (11.5-14.0); White Blood Count 6.9 x10^3/uL (4.0-10.5)
--- NOTE | 2022-12-21 23:36 | ERPHSYRPT ---
- History of Present Illness Time Seen by Provider: 12/21/22 23:05 Source: patient Exam Limitations: no limitations Patient Subjective Stated Complaint: brought in by police for medical clearance for alf Triage Nursing Assessment: pt ambulatory to bed with law enforcement handcuffed, pt here for medical clearance for DUI, pt is a daily drinker, skin flushed, pt hypertensive but has not taken his blood pressure medication today. Physician History: 52 years old male with history of anxiety depression, hypertension, tobacco abuse, alcohol abuse is brought to the ER by PD for medical clearance. Patient apparently was drinking heavily and later on was driving under influence. He is brought in for medical clearance before going to alf. Patient denies any chest pain palpitations or shortness of breath. Patient is not in any distress, answering questions appropriately and holding conversation. Allergies/Adverse Reactions: lorazepam [From Ativan] Adverse Reaction (Verified 12/21/22 22:54) Hx Tetanus, Diphtheria Vaccination/Date Given: Yes Hx Influenza Vaccination/Date Given: No Hx Pneumococcal Vaccination/Date Given: No Travel Risk - International Travel Have you traveled outside of the country in past 3 weeks: No - Coronavirus Screening Are you exhibiting any of the following symptoms?: No - Vaccine Status Have you recieved a Covid-19 vaccination: No (unk) - Review of Systems Constitutional: No Symptoms Eyes: No Symptoms Ears, Nose, & Throat: No Symptoms Respiratory: No Symptoms Cardiac: No Symptoms Abdominal/Gastrointestinal: No Symptoms Genitourinary Symptoms: No Symptoms Musculoskeletal: Arthralgias Neurological: No Symptoms Psychological: Alcohol Abuse, Anxiety Endocrine: No Symptoms Hematologic/Lymphatic: No Symptoms - Past Medical History Pertinent Past Medical History: Yes Neurological History: No Pertinent History ENT History: No Pertinent History Cardiac History: Hypertension Respiratory History: No Pertinent History Endocrine Medical History: No Pertinent History Musculoskeletal History: No Pertinent History GI Medical History: No Pertinent History History: No Pertinent History Psycho-Social History: No Pertinent History Male Reproductive Disorders: No Pertinent History Other Medical History: CHRONIC BACK PAIN - Past Surgical History Past Surgical History: No - Social History Smoking Status: Current every day smoker Exposure to second hand smoke: Yes Drug Use: none Patient Lives Alone: Yes - Nursing Vital Signs Nursing Vital Signs: Initial Vital Signs Temperature 99.6 F 12/21/22 22:56 Pulse Rate 102 H 12/21/22 22:56 Respiratory Rate 18 12/21/22 22:56 Blood Pressure 183/114 12/21/22 22:56 O2 Sat by Pulse Oximetry 93 L 12/21/22 22:56 Pain Scale Pain Intensity 0 - Physical Exam General Appearance: no apparent distress, alert Eye Exam: PERRL/EOMI, eyes nml inspection Ears, Nose, Throat Exam: normal ENT inspection, TMs normal, pharynx normal, moist mucous membranes Neck Exam: normal inspection, non-tender, supple, full range of motion Respiratory Exam: normal breath sounds, lungs clear Cardiovascular Exam: regular rate/rhythm, normal heart sounds Gastrointestinal/Abdomen Exam: soft, No tenderness Back Exam: normal inspection, normal range of motion Extremity Exam: normal inspection Neurologic Exam: alert, oriented x 3, electric motor repairman II-XII nml as tested, nml station & gait, sensation nml, No motor deficits Skin Exam: normal color SpO2 Interpretation: normal SpO2: 93 O2 Delivery: Room Air Ordered Tests: Active Orders 24 hr Category Date Time Status CBC W DIFF Stat Lab 12/21/22 23:18 Completed CMP Stat Lab 12/21/22 23:18 Completed ETHYL ALCOHOL Stat Lab 12/21/22 23:18 Completed Lab/Rad Data: Laboratory Result Diagrams 12/21/22 23:18 12/21/22 23:18 Laboratory Results 12/21/22 12/21/22 Range/Units 23:18 23:18 WBC 6.9 (4.0-10.5) x10^3/uL RBC 5.02 (4.1-5.6) x10^6/uL Hgb 15.0 (12.5-18.0) g/dL Hct 45.6 (42-50) % MCV 90.8 (78-100) fL MCH 29.9 (26-32) pg MCHC 32.9 (32-36) g/dL RDW 14.3 H (11.5-14.0) % Plt Count 273 (150-450) x10^3/uL MPV 8.5 (7.5-11.0) fL Gran % 49.2 (36.0-66.0) % Immature Gran % (Auto) 0.3 (0.00-0.4) % Nucleat RBC Rel Count 0.0 (0.00-0.1) % Eos # (Auto) 0.08 (0-0.5) x10^3/uL Immature Gran # (Auto) 0.02 (0.00-0.03) x10^3u/L Absolute Lymphs (auto) 2.60 (1.0-4.6) x10^3/uL Absolute Monos (auto) 0.70 (0.0-1.3) x10^3/uL Absolute Nucleated RBC 0.00 (0.00-0.01) x10^3u/L Lymphocytes % 37.8 (24.0-44.0) % Monocytes % 10.2 (0.0-12.0) % Eosinophils % 1.2 (0.00-5.0) % Basophils % 1.3 (0.0-0.4) % Absolute Granulocytes 3.38 (1.4-6.9) x10^3/uL Basophils # 0.09 (0-0.4) x10^3/uL Sodium 144 (137-145) mmol/L Potassium 3.9 (3.5-5.1) mmol/L Chloride 106 (98-107) mmol/L Carbon Dioxide 22 (22-30) mmol/L Anion Gap 19.8 H (5-15) MEQ/L BUN 20 (9-20) mg/dL Creatinine 1.34 H (0.66-1.25) mg/dL Estimated GFR 59.3 ML/MIN Glucose 132 H (74-106) mg/dL Calcium 9.3 (8.4-10.2) mg/dL Total Bilirubin 0.60 (0.2-1.3) mg/dL AST 48 (17-59) U/L ALT 35 (0-50) U/L Alkaline Phosphatase 88 (38-126) U/L Serum Total Protein 9.0 H (6.3-8.2) g/dL Albumin 5.0 (3.5-5.0) g/dL Ethyl Alcohol 310 H (0-10) mg/dL - Progress Progress: unchanged Progress Note: 12/21/22 23:42 52 years old male with history of anxiety depression, hypertension, tobacco abuse, alcohol abuse is brought to the ER by PD for medical clearance. Patient apparently was drinking heavily and later on was driving under influence. He is brought in for medical clearance before going to alf. Patient denies any chest pain palpitations or shortness of breath. Patient is not in any distress, answering questions appropriately and holding conversation. Baseline work-up fairly unremarkable. Blood alcohol of 310 but patient is not altered or confused or acting as intoxicated. He is medically cleared to go to alf and will be placed in the drunk tank/hold cell. 12/22/22 00:03 Counseled pt/family regarding: lab results, diagnosis, need for follow-up Medical Desision Making - Diagnostic Testing Diagnostic test were ordered, analyzed, and reviewed by me: Yes - Departure Departure Disposition: Home Clinical Impression: Alcohol abuse, Encounter for medical clearance for patient hold Condition: Stable Critical Care Time: No Referrals: ANDREE JACKSON [Primary Care Provider] - Follow up with PCP 2 days Instructions: Alcohol Use Disorder (DC) Additional Instructions: Cut down on drinking. Drink plenty of fluids to keep yourself well-hydrated. Follow-up with primary care for reevaluation. Patient is medically cleared to go to alf in drunk tank/hold cell.
[2022-12-21 23:41] LABS: ANION GAP 19.8 MEQ/L (5-15); BILIRUBIN,TOTAL 0.6 mg/dL (0.2-1.3); Calcium 9.3 mg/dL (8.4-10.2); Creatinine 1 1.34 mg/dL (0.66-1.25); EST GLOMERULAR FILTRATION RATE 59.3 ML/MIN; Potassium 3.9 mmol/L (3.5-5.1)
[2022-12-21 23:58] VITALS: BP 156/97; PULSE 89
[2022-12-22 00:26] VITALS: O2SAT 93
== END 2022-12-21 23:58 | disposition home or self-care (01) ==
LOC: ED 22:52
DX: Z02.89 Encounter for other administrative examinations (principal); F10.129 Alcohol abuse with intoxication, unspecified; Y90.8 Blood alcohol level of 240 mg/100 ml or more; I10 Essential (primary) hypertension; Z72.0 Tobacco use
CPT/HCPCS: 36415; 80053; 82077; 85025; 99282